=== PATIENT | male | born 1965 | race Caucasian/White ===

== ENCOUNTER 2021-01-27 01:05 | Emergency (ER) | payer MEDICAID ==
[~2021-01-27] VITALS: Ht 185.4 cm; Wt 103.0 kg
[2021-01-27 01:44] VITALS: BP 141/97
== END 2021-01-27 02:35 | disposition left against medical advice (07) ==
LOC: ER 01:05
DX: I10 Essential (primary) hypertension (principal); Z53.21 Procedure and treatment not carried out due to patient leaving prior to being seen by health care provider
CPT/HCPCS: 82962; 93005